=== PATIENT | female | born 1980 | race Caucasian/White ===

== ENCOUNTER → 2016-10-29 | Outpatient (CLI) | payer OTHER ==
--- NOTE | 2016-10-29 13:44 | MA ---
Bilateral Diagnostic Digital Mammography Clinical History: 36-year-old female with some irregular tissue palpated in the lateral right breast, deemed "likely fibrocystic." The patient had a history of ovarian cancer treated with chemotherapy a t age 23. She is currently on hormone replacement therapy. There is no family history of breast cance r. Technique: Digital CC and MLO views of each breast were obtained and compared to previous studies raul ed April 30, 2010, April 17, 2010, March 07, 2009, and May 01, 2007. Additionally, this examination was pr ocessed by the [facility] computer-aided detection system. Breast Density: Type A (Adipose-Replaced). CAD Evaluation: Reviewed. Findings: The breasts are of low parenchymal density. There is no new focal dominant mass, or archite ctural change. There is a stable-appearing intramammary lymph node in the outer left breast. With ref erence to the lateral aspect of the right breast, there is no mammographic abnormality. There are no suspicious clustered microcalcifications. Impression: Needs additional imaging evaluation of an area of palpable concern in the lateral right b reast. BI-RADS category 0, incomplete. Recommendation: Targeted right breast sonography. [facility] will send a result letter to the patient.
--- NOTE | 2016-10-29 13:55 | US ---
Right Breast Sonography Clinical History: 36-year-old female whose physician felt an area of focal fibrous difference in the upper-outer right breast. The patient does not discretely feel this area. The patient's gynecologic h istory is notable for stage II ovarian cancer at age 23 which was successfully treated, indicating th at her oncologist has said that she has no further need for follow up. She is BRCA gene mutation nega tive. ICD-10 Diagnostic Code: N63. Technique: A linear 12 MHz transducer was used to sonographically evaluate the lateral aspect of the right breast. Both the atomic welder and the sonologist performed the exam. Comparison Study: Diagnostic mammography from early today. Findings: The patient indicated that the area of palpable concern was in the upper-outer quadrant, an d this area was targeted. There is no sonographic abnormality; specifically, there is no solid or cys tic mass, or unusual acoustic shadowing. The mammograms demonstrate adipose replacement of the breast . Impression: Negative right breast sonography. Recommendation: Assessment of any area of palpable concern should also be based upon its clinical julia its. The patient was also encouraged to perform monthly breast self exam.
== END ==
LOC: CIMAGING 12:43
PROVIDERS: ATTEND Obstetrics & Gynecology
DX: N63 Unspecified lump in breast (principal)
CPT/HCPCS: 76641-PO; G0204